=== PATIENT | female | born 1985 | race African-American/Black ===

== ENCOUNTER → 2017-07-23 | Day surgery (SDC) | payer BC ==
[~2017-07-23] VITALS: Ht 152.4 cm; Wt 78.7 kg
[~2017-07-23] MED LIST: APREPITANT 40 MG CAP ONE; CHLORHEXIDINE GLUCONATE 2 % 1 PACK (2 CLOTHS) TOPICAL PRN; DO NOT ADM ANY ANTICOAGULANT DRUGS PRN; FAMOTIDINE 20 MG/2 ML VIAL ONE; LACTATED RINGER'S 1000 ML IV PRN; METOPROLOL TARTRATE 25 MG TAB PO PRN; ONDANSETRON HCL 4 MG/2 ML VIAL ONE; POVIDONE IODINE 5% (ANTISEPSIS KIT) 4 APPLICATIONS EACH NARE PRN; PREN29TA PO; SODIUM CHLORID 0.9% 500 ML IV PRN; VENTAER INH
[2017-07-23 06:44] LABS: AUTOMATED NEUTROPHIL # 6.9 TH/MM3 (1.8-7.7); BASOPHIL % 0.2 % (0.0-2.0); EOSINOPHIL # 0.3 TH/MM3 (0-0.4); EOSINOPHIL % 2.9 % (0.0-4.0); HEMOGLOBIN 12.8 GM/DL (11.6-15.3); LYMPH % 28.3 % (9.0-44.0); LYMPHOCYTE # 3.1 TH/MM3 (1.0-4.8); MEAN CELL VOLUME 75.6 FL (80.0-100.0); MEAN CORPUSCULAR HEMOGLOBIN 24.8 PG (27.0-34.0); MEAN CORPUSCULAR HGB CONC 32.8 % (32.0-36.0); MEAN PLATELET VOLUME 7.5 FL (7.0-11.0); MONO % 6.1 % (0.0-8.0); MONOCYTE # 0.7 TH/MM3 (0-0.9); NEUT % 62.5 % (16.0-70.0); PLATELET COUNT 422 TH/MM3 (150-450); RED BLOOD COUNT 5.15 MIL/MM3 (4.00-5.30); RED CELL DISTRIBUTION WIDTH 16.1 % (11.6-17.2)
--- NOTE | 2017-07-23 08:30 | MH ---
cc: Kevin Billy MD DATE OF ADMISSION: 07/23/2017 HISTORY OF PRESENT ILLNESS: This is a 32-year-old 5, para 0-2-2-2, who has been diagnosed with an incompetent cervix. She has had 2 losses at less than 24 weeks and 1 in the first trimester. Patient has been diagnosed with an incompetent cervix. At her last had a cervical cerclage and delivered but viable. The patient is scheduled today for a cervical cerclage. She is aware of the risks, benefits and alternatives including miscarriage and rupture of membranes. PAST MEDICAL HISTORY: None. PAST SURGICAL HISTORY: Cervical cerclage. OB HISTORY: Five pregnancies with 2 living. MOBILE [employer]ITY [employer]CHITECT HISTORY: Negative. No surgeries on the cervix. MEDICATIONS: None. ALLERGIES: NONE. SOCIAL HISTORY: She does not smoke, drink or use drugs. PHYSICAL EXAM: VITAL SIGNS: Stable and afebrile. NECK: Thyroid palpably normal. HEART: Regular rate and rhythm without murmur or gallop. LUNGS: Clear to auscultation bilaterally. ABDOMEN: Soft, nontender, and nondistended. PELVIC: Vulva vagina was within normal limits. Uterus is 16 week size. No adnexal masses. IMPRESSION: At this time, 16-week intrauterine for cervical cerclage. The patient is aware of the risks, benefits and alternatives. She has signed consents. The patient has a history of a cervical cerclage with a successful living baby and previous losses with her incompetent cervix. Kevin Billy MD JWRoshan/SHARIF , 08:11 AM , 08:28 AM
--- NOTE | 2017-07-23 08:55 | PD.OP ---
Operative Report Date of Surgery: Jul 23, 2017 Preoperative Diagnosis: (1) Incompetence of cervix Postoperative Diagnosis: (1) Incompetence of cervix Procedure: cervical cerclage Surgeon: Kevin Billy Mathematician(s): Kevin Bellamy MD Jul 23, 2017 08:55
--- NOTE | 2017-07-23 08:58 | HHI.DCPOC ---
Discharge Care Plan Diagnosis: (1) Incompetence of cervix Report Symptoms to Your Doctor -Temperature above 100.5 degrees -Redness, of incision or excessive or foul smelling drainage -Unusual pain or calf pain -Increased vaginal bleeding -Painful or difficulty urinating -Feelings of extreme sadness or anxiety after 2 weeks Goals to Promote Your Health * To prevent worsening of your condition and complications * To maintain your health at the optimal level Directions to Meet Your Goals Take your medications as prescribed Follow your dietary instruction Follow activity as directed Ensure plenty of rest for recovery Drink fluids for hydration Keep your appointments as scheduled Take your immunizations and boosters as scheduled If your symptoms worsen call your PCP, if no PCP go to Urgent Care Center or Emergency Room Smoking is Dangerous to Your Health. Avoid second hand smoke Call the 24-hour crisis hotline for domestic abuse at Kevin Billy MD Jul 23, 2017 08:58
--- NOTE | 2017-07-23 09:04 | MP ---
cc: Kevin Billy MD DATE OF OPERATION: 07/23/2017 DATE OF PROCEDURE: 07/23/2017. PROCEDURE PERFORMED: Cervical cerclage. PREOPERATIVE DIAGNOSIS: Incompetent cervix 16 weeks. POSTOPERATIVE DIAGNOSIS: Incompetent cervix 16 weeks. SURGEON: Kevin Billy MD ESTIMATED BLOOD LOSS: 100 mL COMPLICATIONS: None. ANESTHESIA: Spinal. FINDINGS: Long, thick and closed cervix, which was patulous. PROCEDURE IN DETAIL: After informed consent, the patient was taken to the operating room where she was placed under spinal anesthesia. She was placed in supine position, legs in the candy cane stirrups. Abdomen, perineum and vagina were prepped and draped in normal sterile fashion, and the timeout was taken. Bladder was drained with a red Urban catheter. Adequate anesthesia was assured with the spinal and a cervical cerclage which was done by for placing a Pires cerclage with #1 Prolene in a circumferential fashion starting at the 1 o'clock portion, we placed a second stitch which was more cephalad. This was done without difficulty. Good hemostasis was achieved when these were tied down. The patient tolerated the procedure well. She was taken to the recovery room in stable condition for the spinal to wear off. heart tones will be obtained in the recovery room. Kevin Billy MD JWM/KD , 08:49 AM , 09:01 AM
[2017-07-23 14:18] VITALS: BP 116/71; PULSE 102; RESP 16; TEMP 98.1; O2SAT 99
== END | disposition home or self-care (01) ==
LOC: HSDC 05:36
PROVIDERS: ATTEND Obstetrics & Gynecology
DX: O34.32 Maternal care for cervical incompetence, second trimester (principal); Z3A.16 16 weeks gestation of pregnancy; Z01.818 Encounter for other preprocedural examination
CPT/HCPCS: 00948; 59320; 85025; J2405; J7120; J8501

== ENCOUNTER → 2017-08-11 | Outpatient (CLI) | payer BC ==
[~2017-08-11] MED LIST changes: -APREPITANT 40 MG CAP ONE; -CHLORHEXIDINE GLUCONATE 2 % 1 PACK (2 CLOTHS) TOPICAL PRN; -DO NOT ADM ANY ANTICOAGULANT DRUGS PRN; -FAMOTIDINE 20 MG/2 ML VIAL ONE; -LACTATED RINGER'S 1000 ML IV PRN; -METOPROLOL TARTRATE 25 MG TAB PO PRN; -ONDANSETRON HCL 4 MG/2 ML VIAL ONE; -POVIDONE IODINE 5% (ANTISEPSIS KIT) 4 APPLICATIONS EACH NARE PRN; -SODIUM CHLORID 0.9% 500 ML IV PRN
== END ==
LOC: HPND 08:12
PROVIDERS: ATTEND Obstetrics & Gynecology
DX: O28.0 Abnormal hematological finding on antenatal screening of mother (principal); O35.1XX0 Maternal care for (suspected) chromosomal abnormality in fetus, not applicable or unspecified; O09.292 Supervision of pregnancy with other poor reproductive or obstetric history, second trimester; O34.32 Maternal care for cervical incompetence, second trimester
CPT/HCPCS: 76811

== ENCOUNTER → 2017-08-25 | Outpatient (CLI) | payer BC | LOC: HPND 12:19 | PROVIDERS: ATTEND Obstetrics & Gynecology | DX: O34.32 Maternal care for cervical incompetence, second trimester (principal); O28.0 Abnormal hematological finding on antenatal screening of mother; O09.212 Supervision of pregnancy with history of pre-term labor, second trimester | CPT/HCPCS: 76815 ==

== ENCOUNTER → 2017-09-08 | Outpatient (CLI) | payer BC | LOC: HPND 09:37 | DX: O28.0 Abnormal hematological finding on antenatal screening of mother (principal); O09.212 Supervision of pregnancy with history of pre-term labor, second trimester | CPT/HCPCS: 76816; 76825; 76827; 93325 ==

== ENCOUNTER → 2017-10-06 | Outpatient (CLI) | payer BC | LOC: HPND 10:59 | PROVIDERS: ATTEND Obstetrics & Gynecology | DX: O24.112 Pre-existing type 2 diabetes mellitus, in pregnancy, second trimester (principal); O36.5920 Maternal care for other known or suspected poor fetal growth, second trimester, not applicable or unspecified | CPT/HCPCS: 76816; 76818; 76820; 76821 ==

== ENCOUNTER 2017-10-14 10:12 | Emergency (ER) | payer BC ==
--- NOTE | 2017-10-14 13:06 | PD ---
HPI Chief Complaint monitoring Date Seen: Oct 14, 2017 Time Seen: 12:59 Travel History International Travel<30 Days: No Contact w/Intl Traveler<30Days: No Known Affected Area: No History of Present Illness HPI Pt is a 32y/o @ 38.2wks. She has PNC with Dr. Billy. She was seen today in OB Dx for IUGR monitoring and BPP was 8/8 but strip was without accelerations. She was sent for monitoring. is c/b: -- IUGR -- A2GDM -- cervical insufficiency (cerclage with prior and current pregnancies) -- h/o 28wk delivery (PPROM and PTL) -- recurrent miscarriages Weeks Gestation: 28 Para: 1 : 6 History Past Medical History Medical History: Denies Significant Hx Obstetric History Obstetric History poor OB history recurrent miscarriages with D&Cs @ 28wks due to CI, PPROM, PTL, cerclage that preg ppx cerclage and A2GDM this preg Past Surgical History Narrative Surgical cerclage x2 Family History Family History: Negative Social History Alcohol Use: No Tobacco Use: No Substance Abuse: No Allergies-Medications (Allergen,Severity, Reaction): Coded Allergies: No Known Allergies (Verified Allergy, Unknown, 07/23/17) Home Meds Reported Medications Albuterol 18 GM Inh (Ventolin Hfa 18 GM Inh) 90 Mcg/Act Aer, 2 PUFF INH Q4H Y for SHORTNESS OF BREATH, #1 INHALER 0 Refills 07/21/17 Vit-Iron Carbonyl ( Plus Iron 29-1 mg) 29 Mg Iron-1 Mg Tab, 1 TAB PO DAILY for Nutritional Supplement, #30 TAB 0 Refills 07/21/17 Narrative Medication insulin Review of Systems Except as stated in HPI: all other systems reviewed are Neg Physical Exam Narrative General: well developed, well nourished, no acute distress HEENT: normocephalic atraumatic, extraocular movements intact, neck supple Abdomen: soft, gravid, nontender, nondistended Extremities: full range of motion Skin: normal coloration, no rashes, no suspicious skin lesions noted Neurologic: cranial nerves 2-12 grossly intact, normal muscle tone, normal gait Psychiatric: normal mood and affect, appropriate FHTs: 140s, age appropriate tracing [place]: quiet Cvx: deferred Data Data Vital Signs Reviewed: Yes Orders Orders Vital Signs (Adult) .ON ADMISSION (10/14/17 12:58) ^ Labor Status (10/14/17 12:58) ^ Non Stress Test (10/14/17 12:58) Ed Discharge Order (10/14/17 12:58) MDM Plan 32y/o @ 28.2wks with IUGR needing monitoring. -- FHT age appropriate -- pt has f/u scheduled Dispo: stable for d/c home Diagnosis Diagnosis: Primary Impression: 28 weeks gestation of Additional Impressions: Cervix incompetence IUGR (intrauterine growth restriction) Gestational diabetes mellitus (GDM) with poor obstetric history Diogenes Mcmullen MD Oct 14, 2017 13:06
== END 2017-10-14 13:14 | disposition home or self-care (01) ==
LOC: HOBED 10:12
DX: O34.33 Maternal care for cervical incompetence, third trimester (principal); O24.419 Gestational diabetes mellitus in pregnancy, unspecified control; Z79.4 Long term (current) use of insulin; Z3A.28 28 weeks gestation of pregnancy; Z79.51 Long term (current) use of inhaled steroids
CPT/HCPCS: 99282